=== PATIENT | female | born 1955 | race Caucasian/White ===

== ENCOUNTER → 2017-07-13 | Outpatient (CLI) | payer OTHER ==
[~2017-07-13] MED LIST: CIPR-326 PO; DETROL LA; KET10 PO; LOR5 PO; PRE20 PO; TOLT4CAP13 PO
--- NOTE | 2017-07-13 10:49 | RADIOLOGY IMAGING REPORT ---
FACILITY: [facility] [place] PATIENT NAME: Cierra Campos : 1955 MR: [id number] V: [id number] EXAM DATE: ORDERING PHYSICIAN: MIGUEL ANGEL GAN TECHNOLOGIST: Location: [facility] Patient: Cierra Campos : 1955 Visit/Account:[id number] Date of Sevice: 07/13/2017 PELVIC HISTORY: Enlarged uterus TECHNIQUE: Transabdominal and transvaginal ultrasound pelvis. COMPARISON: CT July 25, 2016 FINDINGS: Uterus: There is a retroverted uterus; 6.4 cm length x 3.3 cm AP x 4 cm transverse. Myometrium: Unremarkable. Endometrium: Bicornuate; double thickness 3.7 mm. Cervix: Nabothian cysts are present. On one image there suggestion of shadowing calcifications/secre tions Ovaries: Right - not visualized Left - visualized Adnexa: Grossly unremarkable. Free pelvic fluid: None. IMPRESSION: Bicornuate, retroflexed uterus Nabothian cysts On one image there suggestion of shadowing calcifications/secretions within the cervix Neither ovary visualized Report Dictated By: Audrey Dior MD at 07/13/2017 10:41 AM Report E-Signed By: Audrey Dior MD at 07/13/2017 10:45 AM WSN:[id number]
== END ==
LOC: US 03:09
PROVIDERS: ATTEND Family Medicine
DX: N85.4 Malposition of uterus (principal); N88.8 Other specified noninflammatory disorders of cervix uteri
CPT/HCPCS: 76856

== ENCOUNTER → 2017-07-24 | Outpatient (CLI) | payer OTHER ==
--- NOTE | 2017-07-24 14:07 | RADIOLOGY IMAGING REPORT ---
FACILITY: [facility] PATIENT NAME: CHELSIE JAMES : [id number] MR: [id number] V: [id number] EXAM DATE: [id number] ORDERING PHYSICIAN: MIGUEL ANGEL GAN TECHNOLOGIST: Marina Castillo PROCEDURE:BILATERAL DIGITAL SCREENING MAMMOGRAM WITH CAD ASSISTED INTERPRETATION & 3D TOMOSYNTHESIS TECHNIQUE: Routine CC & MLO 3D tomographic images were obtained of both breasts. CAD was used. COMPARISON:Dating back to 2008 are available. INDICATIONS:SCREENING BREAST DENSITY: Scattered fibroglandular densities. FINDINGS: Subtle low density nodularity in the 12 o'clock position Right breast anterior depth appears stable allowing for differences in technique. No new enlarging masses or suspicious microcalcifications in either breast. DIAGNOSTIC CATEGORY 1--NEGATIVE. RECOMMENDATIONS: ROUTINE MAMMOGRAM AND CLINICAL EVALUATION IN 1 YR. IMPRESSION: BIRADS 1: Negative. Dictated by: Jesús Zuleta M.D. on 07/24/2017 at 12:26 Transcribed by: ISRAEL on 07/24/2017 at 13:50 Approved by: Jesús Zuleta M.D. on 07/24/2017 at 14:06 [facility]
== END ==
LOC: MAMO 01:01
PROVIDERS: ATTEND Family Medicine
DX: Z12.31 Encounter for screening mammogram for malignant neoplasm of breast (principal); R92.8 Other abnormal and inconclusive findings on diagnostic imaging of breast
CPT/HCPCS: 77063; 77067

== ENCOUNTER → 2018-09-10 | Outpatient (CLI) | payer OTHER ==
--- NOTE | 2018-09-11 08:22 | RADIOLOGY IMAGING REPORT ---
FACILITY: [facility] [place] PATIENT NAME: CHELSIE JAMES : [id number] MR: [id number] V: [id number] EXAM DATE: ORDERING PHYSICIAN: MIGUEL ANGEL GAN TECHNOLOGIST: Anita Bass PROCEDURE:BILATERAL DIGITAL SCREENING MAMMOGRAM WITH CAD ASSISTED INTERPRETATION & 3D TOMOSYNTHESIS COMPARISON:Prior mammograms 07/24/17. INDICATIONS:SCREENING FINDINGS: There are scattered areas of fibroglandular density throughout the breasts. The parenchymal pattern has remained stable allowing for difference in mammographic technique & patient positioning. DIAGNOSTIC CATEGORY 1--NEGATIVE. RECOMMENDATIONS: ROUTINE MAMMOGRAM AND CLINICAL EVALUATION. IMPRESSION: BIRADS 1: Negative. No significant abnormality is seen. Dictated by: Audrey Dior M.D. on 09/10/2018 at 14:55 Transcribed by: THOMAS on 09/10/2018 at 14:59 Approved by: Audrey Dior M.D. on 09/11/2018 at 8:21 [facility]
== END ==
LOC: MAMO 01:32
PROVIDERS: ATTEND Family Medicine
DX: Z12.31 Encounter for screening mammogram for malignant neoplasm of breast (principal)
CPT/HCPCS: 77063; 77067

== ENCOUNTER 2018-10-27 23:47 | Observation (INO) | payer OTHER, MEDICARE ==
[~2018-10-27] VITALS: Ht 165.1 cm; Wt 96.2 kg
[2018-10-27] MEDS ORDERED: HYDR-2966 PO (23:58)
[2018-10-27] MEDS ORDERED: LOSA25TA57 PO (23:58)
[2018-10-27] MEDS ORDERED: AMLO-125 PO (23:58)
--- NOTE | 2018-10-27 23:58 | ER Report ---
History and Physical Time Seen By : 23:58 Hx. of Stated Complaint: POSSIBLE KIDNEY STONES R SIDE. HPI/ROS CHIEF COMPLAINT: Possible kidney stone HISTORY OF PRESENT ILLNESS: This is a 62-year-old female. She started having pain last night, worsening. This is in the right flank. She describes it as being in "back labor." Having nausea. Pain is severe. No fevers or chills. Feels like she needs to urinate but cannot. Feels like she needs to have a bowel movement but cannot. Prior to the onset of pain no problem with bowel or bladder function. No other abdominal pain. Not short of breath or having chest pain. Allergies: Coded Allergies: ciprofloxacin (Verified Allergy, Intermediate, RASH, 10/27/18) sulfamethoxazole (Verified Allergy, Mild, NAUSEA AND VOMITING, 10/27/18) trimethoprim (Verified Allergy, Mild, NAUSEA AND VOMITING, 10/27/18) Home Meds Reported Medications Hydrochlorothiazide (HYDROCHLOROTHIAZIDE) 25 Mg Tablet, 1 TAB PO QDAY, TAB 10/27/18 Amlodipine Besylate (AMLODIPINE BESYLATE) 5 Mg Tablet, 1 TAB PO QDAY, TAB 10/27/18 Losartan Potassium (LOSARTAN POTASSIUM) 25 Mg Tablet, 25 MG PO QDAY 10/27/18 Discontinued Scripts Ketorolac Tromethamine (KETOROLAC TROMETHAMINE) 10 Mg Tab, 10 MG PO Q6H PRN for PAIN, #12 TAB 0 Refills Prov:JORGE ALBERTO HARLEY MD 10/28/18 Oxycodone Hcl/Acetaminophen (PERCOCET 5-325 MG TABLET) 1 Each Tablet, 1 EACH PO Q4H PRN for PAIN, #12 TAB 0 Refills Prov:JORGE ALBERTO HARLEY MD 10/28/18 Ondansetron 4 Mg Odt (ONDANSETRON 4 MG ODT) 4 Mg Tab.rapdis, 4 MG PO Q6H PRN for NAUSEA/VOMITING, #20 TAB 0 Refills Prov:JORGE ALBERTO HARLEY MD 10/28/18 Tamsulosin Hcl (FLOMAX) 0.4 Mg Cap.er.24h, 0.4 MG PO QDAY, #14 CAP 0 Refills Prov:JORGE ALBERTO HARLEY MD 10/28/18 Ketorolac Tromethamine (KETOROLAC TROMETHAMINE) 10 Mg Tab, 10 MG PO Q6H PRN for PAIN, #12 TAB Prov:LAURA MONTANA MD 07/25/16 Reviewed Nurses Notes: Yes Hx Substance Use Disorder: No Hx Alcohol Use: No Constitutional Vital Sign - Last 24 Hours 10/27/18 10/27/18 10/28/18 10/28/18 23:50 23:54 00:02 00:17 Temp 97.4 Pulse 92 86 85 Resp 14 B/P (MAP) 147/74 147/74 (98) Pulse Ox 95 98 96 O2 Delivery Room Air 10/28/18 10/28/18 10/28/18 10/28/18 00:47 01:00 01:02 01:17 Pulse 89 85 87 B/P (MAP) 135/58 (83) Pulse Ox 82 94 100 10/28/18 10/28/18 10/28/18 10/28/18 01:30 01:32 01:37 01:52 Pulse 92 87 B/P (MAP) 131/60 (83) Pulse Ox 83 83 96 10/28/18 10/28/18 10/28/18 10/28/18 02:00 02:07 02:22 02:47 Pulse 90 92 95 B/P (MAP) 146/74 (98) Pulse Ox 97 95 10/28/18 10/28/18 10/28/18 02:52 03:22 03:37 Pulse 91 91 86 Pulse Ox 94 95 95 Intake and Output 10/27/18 10/27/18 10/28/18 15:00 23:00 07:00 Intake Total 1000 ml Balance 1000 ml Physical Exam General Appearance: The patient is alert. Acute distress because of her pain. Eyes: Pupils are equal, round. No pallor, injection or icterus. ENT: Mucous membranes are moist. Normal oral mucosa. Respiratory: Lungs are clear to auscultation. Cardiovascular: Regular rate and rhythm. No murmurs, gallops or rubs. Normal capillary refill. Gastrointestinal: Abdomen is soft, no reproducible tenderness with palpation. Nondistended. Normal active bowel sounds. No costovertebral angle tenderness with percussion. Neurological: Alert and oriented x3. No focal neurologic deficits Skin: Warm and dry. Musculoskeletal: No pain in the midline of her back. Minimal pain with palpation lower right back. DIFFERENTIAL DIAGNOSIS: After history and physical exam, differential diagnosis was considered for patient with flank pain that is likely kidney stone but will need to look for other possible causes as well. Medical Decision Making Data Points Result Diagram: 10/28/18 0004 10/28/18 0004 Laboratory Hematology Test 10/28/18 00:04 10/28/18 01:37 Red Blood Count 5.22 M/uL (4.17-5.56) Mean Corpuscular Volume 92.6 fL (80.0-96.0) Mean Corpuscular Hemoglobin 31.3 pg (26.0-33.0) Mean Corpuscular Hemoglobin Concent 33.8 g/dL (32.0-36.0) Red Cell Distribution Width 13.1 % (11.5-14.5) Mean Platelet Volume 9.2 fL (7.2-11.1) Neutrophils (%) (Auto) 58.0 % (39.4-72.5) Lymphocytes (%) (Auto) 31.1 % (17.6-49.6) Monocytes (%) (Auto) 8.5 % (4.1-12.4) Eosinophils (%) (Auto) 1.6 % (0.4-6.7) Basophils (%) (Auto) 0.8 % (0.3-1.4) Nucleated RBC Relative Count (auto) 0.1 /100WBC Neutrophils # (Auto) 4.5 K/uL (2.0-7.4) Lymphocytes # (Auto) 2.4 K/uL (1.3-3.6) Monocytes # (Auto) 0.7 K/uL (0.3-1.0) Eosinophils # (Auto) 0.1 K/uL (0.0-0.5) Basophils # (Auto) 0.1 K/uL (0.0-0.1) Nucleated RBC Absolute Count (auto) 0.01 K/uL Sodium Level 138 mmol/L (137-145) Potassium Level 3.5 mmol/L (3.5-5.0) Chloride Level 103 mmol/L (98-107) Carbon Dioxide Level 28 mmol/L (22-31) Blood Urea Nitrogen 21 mg/dl (7-18) Creatinine 0.80 mg/dl (0.52-1.04) Glomerular Filtration Rate Calc > 60.0 Random Glucose 145 mg/dl (75-110) Calcium Level 9.9 mg/dl (8.4-10.2) Total Bilirubin 0.3 mg/dl (0.2-1.3) Aspartate Amino Transf (AST/SGOT) 29 U/L (0-35) Alanine Aminotransferase (ALT/SGPT) 37 U/L (0-56) Alkaline Phosphatase 90 U/L (0-126) Total Protein 7.6 g/dl (6.3-8.2) Albumin 4.5 g/dl (3.5-5.0) Urine Color Yellow Urine Clarity Clear Urine pH 5.0 pH (4.8-9.5) Urine Specific [place] 1.019 Urine Protein 30 mg/dL (NEGATIVE) Urine Glucose (UA) Negative mg/dL (NEGATIVE) Urine Ketones Negative mg/dL (NEGATIVE) Urine Blood Large (NEGATIVE) Urine Nitrite Negative (NEGATIVE) Urine Bilirubin Negative (NEGATIVE) Urine Urobilinogen Negative mg/dL (0.2-1.9) Urine Leukocyte Esterase Moderate (NEGATIVE) Urine RBC 136 /HPF (0-2/HPF) Urine WBC 58 /HPF (0-5/HPF) Urine Squamous Epithelial Cells Many /LPF (</=FEW) Urine Transitional Epithelial Cells Many /LPF (NONE-FEW) Urine Bacteria Few /HPF (NONE-FEW) Urine Mucus Few /HPF (NONE-FEW) Chemistry Test 10/28/18 00:04 10/28/18 01:37 White Blood Count 7.8 k/uL (4.5-11.0) Red Blood Count 5.22 M/uL (4.17-5.56) Hemoglobin 16.3 g/dL (12.0-16.0) Hematocrit 48.3 % (34.0-47.0) Mean Corpuscular Volume 92.6 fL (80.0-96.0) Mean Corpuscular Hemoglobin 31.3 pg (26.0-33.0) Mean Corpuscular Hemoglobin Concent 33.8 g/dL (32.0-36.0) Red Cell Distribution Width 13.1 % (11.5-14.5) Platelet Count 215 K/uL (150-450) Mean Platelet Volume 9.2 fL (7.2-11.1) Neutrophils (%) (Auto) 58.0 % (39.4-72.5) Lymphocytes (%) (Auto) 31.1 % (17.6-49.6) Monocytes (%) (Auto) 8.5 % (4.1-12.4) Eosinophils (%) (Auto) 1.6 % (0.4-6.7) Basophils (%) (Auto) 0.8 % (0.3-1.4) Nucleated RBC Relative Count (auto) 0.1 /100WBC Neutrophils # (Auto) 4.5 K/uL (2.0-7.4) Lymphocytes # (Auto) 2.4 K/uL (1.3-3.6) Monocytes # (Auto) 0.7 K/uL (0.3-1.0) Eosinophils # (Auto) 0.1 K/uL (0.0-0.5) Basophils # (Auto) 0.1 K/uL (0.0-0.1) Nucleated RBC Absolute Count (auto) 0.01 K/uL Glomerular Filtration Rate Calc > 60.0 Calcium Level 9.9 mg/dl (8.4-10.2) Total Bilirubin 0.3 mg/dl (0.2-1.3) Aspartate Amino Transf (AST/SGOT) 29 U/L (0-35) Alanine Aminotransferase (ALT/SGPT) 37 U/L (0-56) Alkaline Phosphatase 90 U/L (0-126) Total Protein 7.6 g/dl (6.3-8.2) Albumin 4.5 g/dl (3.5-5.0) Urine Color Yellow Urine Clarity Clear Urine pH 5.0 pH (4.8-9.5) Urine Specific [place] 1.019 Urine Protein 30 mg/dL (NEGATIVE) Urine Glucose (UA) Negative mg/dL (NEGATIVE) Urine Ketones Negative mg/dL (NEGATIVE) Urine Blood Large (NEGATIVE) Urine Nitrite Negative (NEGATIVE) Urine Bilirubin Negative (NEGATIVE) Urine Urobilinogen Negative mg/dL (0.2-1.9) Urine Leukocyte Esterase Moderate (NEGATIVE) Urine RBC 136 /HPF (0-2/HPF) Urine WBC 58 /HPF (0-5/HPF) Urine Squamous Epithelial Cells Many /LPF (</=FEW) Urine Transitional Epithelial Cells Many /LPF (NONE-FEW) Urine Bacteria Few /HPF (NONE-FEW) Urine Mucus Few /HPF (NONE-FEW) Urinalysis Test 10/28/18 01:37 Urine Color Yellow Urine Clarity Clear Urine pH 5.0 pH (4.8-9.5) Urine Specific [place] 1.019 Urine Protein 30 mg/dL (NEGATIVE) Urine Glucose (UA) Negative mg/dL (NEGATIVE) Urine Ketones Negative mg/dL (NEGATIVE) Urine Blood Large (NEGATIVE) Urine Nitrite Negative (NEGATIVE) Urine Bilirubin Negative (NEGATIVE) Urine Urobilinogen Negative mg/dL (0.2-1.9) Urine Leukocyte Esterase Moderate (NEGATIVE) Urine RBC 136 /HPF (0-2/HPF) Urine WBC 58 /HPF (0-5/HPF) Urine Squamous Epithelial Cells Many /LPF (</=FEW) Urine Transitional Epithelial Cells Many /LPF (NONE-FEW) Urine Bacteria Few /HPF (NONE-FEW) Urine Mucus Few /HPF (NONE-FEW) EKG/Imaging Imaging CT ABDOMEN PELVIS W/O CON HISTORY: Right flank pain. COMPARISON: 07/25/2016. TECHNIQUE: Axial images were obtained from the lung bases through the symphysis pubis without intravenous contrast. Sagittal and coronal reformats were performed. One of the following dose optimization techniques was utilized in the performance of this exam: Automated exposure control; adjustment of the mA and/or kV according to the patient's size; or use of an iterative reconstruction technique. Specific details can be referenced in the facility's radiology CT exam operational policy. CONTRAST: None. FINDINGS: Lower chest: There is a calcified granuloma in the right lower lobe. Liver: Normal. Gallbladder/biliary: Normal. Pancreas: Normal. Spleen: Normal. Adrenals: Normal. Kidneys/ureters/bladder: There is a 4 mm obstructing calculus at the right ureterovesical junction that causes mild to moderate right hydronephrosis and hydroureter. There is mild perinephric stranding. There are 4 right and 3 left nonobstructing renal calculi. The largest is on the left and measures 7 mm (coronal image 60). There are bilateral parapelvic cysts. The left ureter and the bladder are normal. GI/mesentery/peritoneal cavity: There is no bowel obstruction. There is no wall thickening or pericolonic stranding. The appendix is normal. No diverticula. No free air or free fluid. Vessels: No atherosclerotic disease. No aneurysm. Circumaortic left renal vein. Nodes: Normal. Pelvis: Uterus and ovaries are normal. There is a left pelvic phlebolith. Bones/vertebra/soft tissues: There is a small fat-containing umbilical hernia. There is severe degenerative facet disease of the lower lumbar spine. The vertebral body heights are maintained. There is new 2 mm anterolisthesis of L4 compared to L5. Spinal canal is normal in caliber. There is mild degenerative c hange of the hips. IMPRESSION: 1. 4 mm obstructing right ureteropelvic junction calculus causes mild to moderate right hydronephrosis and hydroureter. 2. Bilateral nonobstructing nephrolithiasis. 3. New 2 mm anterolisthesis of L4 compared to L5. Report Dictated By: Laura Hobbs at 10/28/2018 12:52 AM ED Course/Re-evaluation Clinical Indication for ER IV: Hydration, IV Access ED Course Patient given morphine and Toradol for pain, brought the pain level down a little. Also given Zofran for nausea which helped her nausea significantly. Given Dilaudid for pain which made a big difference but also made the patient will hypoxic. Went to CT scan and do show a 4 mm stone at the ureteropelvic junction with mild hydronephrosis. No sign of infection, urine more of a contaminated specimen, and sent for culture. Negative CBC, mild elevation of B UN/Cr ratio. Reviewed these findings with the patient. Gave Flomax. Also an oral Percocet. Patient did have some more nausea was given some more Zofran. We were going to try to send the patient home for home treatment, however, she had continued pain, then hypoxia with pain medicine, then further nausea. Unable to get symptoms controlled to get her home. Called and spoke with Dr. Ceja who accepted the patient for admission. Decision to Disposition Date: October 28, 2018 Decision to Disposition Time: 04:07 Depart Departure Latest Vital Signs Vital Signs Date Time Temp Pulse Resp B/P (MAP) Pulse Ox O2 Delivery O2 Flow Rate FiO2 10/28/18 03:37 86 95 10/28/18 02:00 146/74 (98) 10/27/18 23:50 97.4 14 Room Air Impression: Primary Impression: Kidney stone Condition: Condition Unchanged Disposition: Admitted from ER Referrals: MIGUEL ANGEL GAN DO (PCP) JORGE ALBERTO HARLEY MD October 27, 2018 23:58
[2018-10-28] MEDS ORDERED: NS(*) 0.9% 1000 ML BAG 1,000 ML IV ONE (00:05)
[2018-10-28] MEDS ORDERED: MORPHINE 4 MG/ML SDV IVP ONE (00:05)
[2018-10-28] MEDS ORDERED: KETOROLAC 30 MG/ML VIAL IVP ONE (00:05)
[2018-10-28] MEDS ORDERED: ONDANSETRON 4 MG/2 ML VIAL IVP ONE ×2 (00:05→02:35)
[2018-10-28 00:19] LABS: PLATELET COUNT, AUTOMATED 215 K/uL (150-450)
[2018-10-28] MEDS ORDERED: HYDROMORPHONE HCL 1 MG/ML SYRINGE IVP ONE (00:30)
--- NOTE | 2018-10-28 01:06 | RADIOLOGY IMAGING REPORT ---
[facility] PATIENT NAME: Cierra Campos : 1955 MR: [id number] V: [id number] EXAM DATE: ORDERING PHYSICIAN: JORGE ALBERTO HARLEY TECHNOLOGIST: Location: [facility] Patient: Cierra Campos : 1955 Visit/Account:[id number] Date of Sevice: 10/28/2018 CT ABDOMEN PELVIS W/O CON HISTORY: Right flank pain. COMPARISON: 07/25/2016. TECHNIQUE: Axial images were obtained from the lung bases through the symphysis pubis without intrave nous contrast. Sagittal and coronal reformats were performed. One of the following dose optimization techniques was utilized in the performance of this exam: Autom ated exposure control; adjustment of the mA and/or kV according to the patient's size; or use of an i terative reconstruction technique. Specific details can be referenced in the facility's radiology CT exam operational policy. CONTRAST: None. FINDINGS: Lower chest: There is a calcified granuloma in the right lower lobe. Liver: Normal. Gallbladder/biliary: Normal. Pancreas: Normal. Spleen: Normal. Adrenals: Normal. Kidneys/ureters/bladder: There is a 4 mm obstructing calculus at the right ureterovesical junction th at causes mild to moderate right hydronephrosis and hydroureter. There is mild perinephric stranding. There are 4 right and 3 left nonobstructing renal calculi. The largest is on the left and measures 7 mm (coronal image 60). There are bilateral parapelvic cysts. The left ureter and the bladder are nor mal. GI/mesentery/peritoneal cavity: There is no bowel obstruction. There is no wall thickening or pericol onic stranding. The appendix is normal. No diverticula. No free air or free fluid. Vessels: No atherosclerotic disease. No aneurysm. Circumaortic left renal vein. Nodes: Normal. Pelvis: Uterus and ovaries are normal. There is a left pelvic phlebolith. Bones/vertebra/soft tissues: There is a small fat-containing umbilical hernia. There is severe degene rative facet disease of the lower lumbar spine. The vertebral body heights are maintained. There is n ew 2 mm anterolisthesis of L4 compared to L5. Spinal canal is normal in caliber. There is mild degene rative change of the hips. IMPRESSION: 1. 4 mm obstructing right ureteropelvic junction calculus causes mild to moderate right hydronephrosi s and hydroureter. 2. Bilateral nonobstructing nephrolithiasis. 3. New 2 mm anterolisthesis of L4 compared to L5. Report Dictated By: Laura Hobbs at 10/28/2018 12:52 AM Report E-Signed By: Laura Hobbs at 10/28/2018 1:02 AM WSN:[id number]
[2018-10-28] MEDS ORDERED: oxyCODON/ACET (*)5/325MG (CII) 1 TAB TAB PO ONE (01:20)
[2018-10-28] MEDS ORDERED: TAMSULOSIN HCL 0.4 MG CAP PO ONE (01:20)
[2018-10-28] MEDS ORDERED: OXYC-865 PO (02:06)
[2018-10-28] MEDS ORDERED: KET10 PO (02:06)
[2018-10-28] MEDS ORDERED: TAMS0.4C25 PO (02:06)
[2018-10-28] MEDS ORDERED: ONDA4TAB9 PO (02:06)
[2018-10-28] MEDS: oxyCODONE/ACETAMIN 5/325MG TH 2 TAB/BOTTLE PO ONE ×2 (02:10→02:30)
[2018-10-28] MEDS: KETOROLAC TROM 10 MG TAB TH PO ONE ×2 (02:10→02:30)
[2018-10-28] MEDS: ONDANSETRON 4 MG ODT TH SL ONE ×2 (02:10→02:30)
[2018-10-28 04:41] VITALS: BP 130/59
[2018-10-28] MEDS ORDERED: NS 0.9% IV PRN (04:45)
[2018-10-28] MEDS ORDERED: ONDANSETRON 4 MG/2 ML VIAL IVP PRN (04:50)
[2018-10-28 06:37] VITALS: BP 111/50
[2018-10-28] MEDS: HYDROmorphone* 1 MG/ML 1 MG/ML ML IVP PRN ×2 (07:00→11:32)
[2018-10-28] MEDS: KETOROLAC 30 MG/ML VIAL IVP PRN ×2 (07:00→13:38)
[2018-10-28] MEDS ORDERED: FAMO20TA28 PO (13:08)
[2018-10-28] MEDS ORDERED: HYDR-653 PO (13:09)
[2018-10-28] MEDS ORDERED: IBUP600T22 PO (13:12)
[2018-10-28] MEDS ORDERED: CEPH500T7 PO (13:14)
[2018-10-29] MEDS ORDERED: MULT1CAP59 PO (15:23)
== END 2018-10-28 13:17 | disposition home or self-care (01) ==
LOC: ER 23:59 → INTOOBSV 10-28 04:15 → MED 10-28 04:15
DX: N20.0 Calculus of kidney (principal)
CPT/HCPCS: 74176; 81001; 85025; 87088; 96361; 96374; 96375; 96376; 99284; G0378; J1170; J1885; J2270; J2405; J7030; 82040; 82247; 82310; 82374; 82435; 82565; 82947; 84075; 84132; 84155; 84295; 84450; 84460; 84520; S0119

== ENCOUNTER 2018-10-31 01:40 | Observation (INO) | payer OTHER ==
[2018-10-31] VITALS (16 sets, daily range): BP systolic 119–166; BP diastolic 60–99
[~2018-10-31] VITALS: Ht 165.1 cm; Wt 95.7 kg
[~2018-10-31 01:40] MED LIST changes: +AMLO-125 PO; +CEPH500T7 PO; +FAMO20TA28 PO; +HYDR-2966 PO; +HYDR-653 PO; +IBUP600T22 PO; +LOSA25TA57 PO; +MULT1CAP59 PO; +ONDA4TAB9 PO; +OXYC-865 PO; +TAMS0.4C25 PO
[2018-10-31] MEDS: FAMOTIDINE 20 MG TAB PO ONE ×2 (06:17→06:20)
[2018-10-31] MEDS ORDERED: MIDAZOLAM 2 MG/2 ML VIAL IVP PRN (06:45)
[2018-10-31] MEDS ORDERED: NORMOSOL R SOLN(*) 1000 ML BAG 1,000 ML IV PRN (06:45)
[2018-10-31] MEDS ORDERED: LIDOCAINE/SOD BICARB 8.4% SYR ID ONE (06:45)
[2018-10-31] MEDS ORDERED: cefTRIAXone(*) 2 GM VIAL 2 GM in NS(*) 0.9% 100 ML MINI-BAG 100 ML IVPB ONE (06:45)
[2018-10-31] MEDS ORDERED: IOPAMIDOL-200 50 ML VIAL IS ONE (07:13)
[2018-10-31 07:25] LABS: INR 0.96
[2018-10-31] MEDS ORDERED: DEXAMETHASONE SOD PHOS 10MG/ML ONE (07:26)
[2018-10-31] MEDS ORDERED: PROPOFOL EMUL(*) 10MG/ML 20 ML 20 ML ONE (07:26)
[2018-10-31] MEDS ORDERED: ONDANSETRON 4 MG/2 ML VIAL ONE (07:26)
--- NOTE | 2018-10-31 07:36 | RADIOLOGY IMAGING REPORT ---
[place] [facility] [place] NAME[place] Cierra Campos : 1955 MR: [id number] V: [id number] EXAM DATE: ORDERING PHYSICIAN: KOBY DORANTES TECHNOLOGIST: Location: [facility] [place] Patient: Cierra Campos : 1955 Visit/Account:[id number] Date of Sevice: 10/29/2018 KUB SINGLE VIEW ABDOMEN HISTORY: KIDNEY STONES COMPARISON: CT examination October 28, 2018 FINDINGS: An ovoid 8 mm stone projects over lower pole calyx on the left. Punctate densities are seen in the re gion the mid and lower pole right kidney. The stones seen at the right UVJ is difficult and not defin itively seen. IMPRESSION: 1. Bilateral nephrolithiasis. 2. The 4 mm stone seen at the right UVJ is not definitively seen. Report Dictated By: Zach Blanco MD at 10/31/2018 7:30 AM Report E-Signed By: Zach Blanco MD at 10/31/2018 7:32 AM WSN:[id number]
[2018-10-31] MEDS ORDERED: fentaNYL CITR 100 MCG/2 ML AMP ONE (07:54)
--- NOTE | 2018-10-31 08:42 | EKG ---
FACILITY: [facility] PATIENT NAME: CHELSIE JAMES : [id number] MR: [id number] V: [id number] EXAM DATE: ORDERING PHYSICIAN: KOBY STINSON TECHNOLOGIST: ELIANA Test Reason : PRE OP Blood Pressure : / mmHG Vent. Rate : 082 BPM Atrial Rate : 082 BPM P-R Int : 148 ms QRS Dur : 086 ms QT Int : 376 ms P-R-T Axes : 057 -49 048 degrees QTc Int : 439 ms Normal sinus rhythm Left axis deviation Poor R V1-6 - may be related to lead placement. No previous ECGs available Confirmed by MALCOLM WARNER ([id number]) on 10/31/2018 9:03:21 PM Referred By: JOSE E Confirmed By:MALCOLM WARNER
--- NOTE | 2018-10-31 11:29 | OPERATIVE REPORT 1 ---
EVENT DATE: October 31, 2018 SURGEON: Thanh Ceja MD ANESTHESIOLOGIST: Thanh London MD ANESTHESIA: General. PREOPERATIVE DIAGNOSES 1. Right ureteral lithiasis with associated ureteral renal colic. 2. Bilateral renal lithiasis. POSTOPERATIVE DIAGNOSES 1. Right ureteral lithiasis with associated ureteral renal colic. 2. Bilateral renal lithiasis. 3. No evidence of right ureteral lithiasis. PROCEDURES PERFORMED 1. Cystourethroscopy. 2. Right ureteral pyelograms. 3. Right ureterorenoscopy. 4. Bilateral external ureteral stent placement and subsequent removal. 5. Right ESWL, two stones. 6. Left ESWL, one stone. 7. indwelling left stent placement DESCRIPTION OF PROCEDURE Under general anesthetic, the patient was prepped and draped in the extended lithotomy position. The 21-Panendoscope was admitted through the urethra and into the bladder. Urine was obtained for culture and sensitivity. No stones were visible in the bladder. There appeared to be possible early acute cystitis. The bladder was bathed with Betadine solution and the patient was on Rocephin and gentamicin antibiotic therapy. The Betadine solution was left in contact with the bladder for approximately five minutes. The Betadine solution was irrigated free from the bladder. The 21-Panendoscope was admitted through the urethra into the bladder. Right ureteral pyelograms were obtained. No stone was clearly visible on the ureteral pyelogram. The kidney appeared to drain freely and the ureter was fnormal in size. The ureteral renoscope passed up the right ureter without any difficulty. No stones were visualized in its entirety. The external stents were placed. The external stents were secured to a Ford. Contrast medium was attached to the ureteral stents. The patient was transferred to the stone treatment unit. After positioning the large stones in the inferior pole of the left kidney were treated with a total of 3,000 shocks, progressing from low to high kV fairly slowly. The stone appeared to satisfactorily disintegrateand did spread out over a fairly large area in the inferior pole area. All the shocks were administered to that area to hopefully ensure complete disintegration. The two small stones in the midpole area of the left kidney were not treated. The patient was positioned for right extracorporeal shock wave lithotripsy and the two stones in the right kidney, the inferior pole area and the mid pole area of the right kidney were treated with a total of 1,500 shocks, progressing from low to high kV fairly rapidly. The external stents were removed. A 21-Panendoscope was admitted through the urethra into the bladder. The access catheter was placed in the left ureter and a 0.038 flexible tip guidewire. The 6-Cymro x 26 cm Percuflex Plus was passed up the left collecting system without any difficulty. X-rays showed a full curl in the left kidney and a full curl in the bladder. The bladder was drained. Patient tolerated the procedure satisfactorily and returned to the recovery room in satisfactory condition. This is a 62-year old white female complaining of right ureterolithiasis with associated severe ureteral renal colic, nausea and vomiting. She was admitted and treated symptomatically. Options were discussed with the patient as to her problems and treatment options. She elected to follow up and that has been accomplished. See operative note for details. Patient will be ready for discharge home if all is going well. To force fluids 12 glasses of water per day. Activities are as tolerated. She is to strain all of her urine. She is to continue her usual medications. Copy of instructions were given to the patient. We will plan followup this coming Sunday in the office. KIKI
[2018-10-31] MEDS ORDERED: ONDANSETRON 4 MG/2 ML VIAL IVP PRN (12:00)
[2018-10-31] MEDS ORDERED: LR(*) 1000 ML BAG 1,000 ML IV PRN (12:00)
[2018-10-31] MEDS ORDERED: ACETAMIN/CODEINE #3 300-30 MG PO PRN (12:00)
[2018-10-31] MEDS ORDERED: ZOLPIDEM TARTRATE 5 MG TAB PO PRN (12:00)
[2018-10-31] MEDS ORDERED: FLUSH 10 ML SYR IVP PRN (12:00)
[2018-10-31] MEDS ORDERED: PCA LOCKBOX KEYS XX PRN (12:05)
[2018-10-31] MEDS ORDERED: NALOXONE HCL 0.4 MG/ML VIAL IVP PRN (12:05)
[2018-10-31] MEDS ORDERED: HYDROMORPHON PCA10MG/50ML(CII) 10 MG/50 ML PLAST..BAG IV PRN (12:05)
--- NOTE | 2018-10-31 13:08 | RADIOLOGY IMAGING REPORT ---
FACILITY: [facility] - [place] PATIENT NAME: Cierra Campos : 1955 MR: [id number] V: [id number] EXAM DATE: ORDERING PHYSICIAN: KOBY DORANTES TECHNOLOGIST: Location: [facility] [place] Patient: Cierra Campos : 1955 Visit/Account:[id number] Date of Sevice: 10/31/2018 Exam type: RETROGRADE PYELOGRAM History: HEMATURIA, pain on right side, kidney stone Comparison: October 29, 2018 Findings: Four intraoperative C-arm spot views of the abdomen and pelvis were submitted. The total fluoroscopy time was four seconds. The fluoroscopy dose was 1.9 mgGy Contrast is seen in the nondilated right renal collecting system and ureter. A cystoscope overlies t he pelvis. A definite filling defect within the right ureter or right renal collecting system is not appreciated. Ovoid calcination again noted over the lower pole the left kidney IMPRESSION: 1. As above Report Dictated By: Audrey Dior MD at 10/31/2018 1:01 PM Report E-Signed By: Audrey Dior MD at 10/31/2018 1:04 PM WSN:[email or web address]
[2018-10-31] MEDS: GENTAMICIN/NS 80 MG/100 ML PB 100 ML IVPB SCH ×2 (14:39→22:08)
[2018-10-31] MEDS ORDERED: OXYBUTYNIN CHL XL 5 MG TABCR PO PRN (16:20)
[2018-10-31] MEDS: APAP/HYDROCODONE 325/7.5 TAB PO PRN ×2 (18:03→22:09)
[2018-10-31] MEDS: FAMOTIDINE 20 MG TAB PO SCH (21:20)
[2018-10-31] MEDS: DOCUSATE SODIUM 100 MG CAP PO SCH (21:20)
[2018-11-01] MEDS: APAP/HYDROCODONE 325/7.5 TAB PO PRN ×2 (02:54→07:18)
[2018-11-01 03:00] VITALS: BP 160/76
[2018-11-01] MEDS: GENTAMICIN/NS 80 MG/100 ML PB 100 ML IVPB SCH (06:24)
[2018-11-01 07:04] VITALS: BP 125/64
[2018-11-01] MEDS ORDERED: cefTRIAXone(*) 1 GM VIAL 1 GM in NS(*) 0.9% 100 ML MINI-BAG 100 ML IVPB SCH (08:00)
[2018-11-01] MEDS ORDERED: CEPH-13 PO (08:00)
[2018-11-01] MEDS ORDERED: HYDR-653 PO (08:02)
[2018-11-01] MEDS ORDERED: FAMO20TA28 PO (08:03)
[2018-11-01] MEDS ORDERED: IBUP600T22 PO (08:03)
[2018-11-01] MEDS: FAMOTIDINE 20 MG TAB PO SCH (09:29)
[2018-11-01] MEDS: DOCUSATE SODIUM 100 MG CAP PO SCH (09:29)
== END 2018-11-01 08:22 | disposition home or self-care (01) ==
LOC: OR 01:40 → INTOOBSV 11:50 → MED 11:50 → OBSVTOIN 11:50
DX: N20.0 Calculus of kidney (principal); R11.2 Nausea with vomiting, unspecified; I10 Essential (primary) hypertension; M19.90 Unspecified osteoarthritis, unspecified site; Z79.899 Other long term (current) drug therapy
CPT/HCPCS: 50590; 52351; 74018; 74420; 85610; 87088; 93005; C1758; G0378; J0696; J1100; J1580; J2250; J2405; J2704; J3010; Q9966

== ENCOUNTER → 2018-11-05 | Outpatient (CLI) | payer OTHER ==
[~2018-11-05] MED LIST changes: +CEPH-13 PO
--- NOTE | 2018-11-05 09:39 | RADIOLOGY IMAGING REPORT ---
FACILITY: [facility] - [place] PATIENT NAME: Cierra Campos : 1955 MR: [id number] V: [id number] EXAM DATE: ORDERING PHYSICIAN: KOBY DORANTES TECHNOLOGIST: Location: [facility] Patient: Cierra Campos : 1955 Visit/Account:[id number] Date of Sevice: 11/05/2018 Examination: Abdomen single view HISTORY: Lithotripsy and stent placement. COMPARISON: CT scan 10/28/2018 is reviewed. FINDINGS: The intestinal bowel gas pattern is normal. A left-sided nephroureteral stent is in place. No calculi are seen along the course of the stent. There are felt to be stone fragments overlying the mid and l ower portion of the left kidney after prior lithotripsy. Degenerative changes involve the low lumbar spine. IMPRESSION: 1. Left nephroureteral stent. 2. Stone fragments overlying the mid and lower pole of the left kidney after lithotripsy procedure. Report Dictated By: Anthony Jimenez at 11/05/2018 9:31 AM Report E-Signed By: Anthony Jimenez at 11/05/2018 9:35 AM WSN:[email or web address]
== END ==
LOC: RAD 08:37
DX: N20.0 Calculus of kidney (principal); Z96.0 Presence of urogenital implants
CPT/HCPCS: 74018

== ENCOUNTER → 2018-11-12 | Outpatient (CLI) | payer OTHER ==
--- NOTE | 2018-11-12 09:06 | RADIOLOGY IMAGING REPORT ---
[place] [facility] [place] NAME: Cierra Campos : 1955 MR: [id number] V: [id number] EXAM DATE: ORDERING PHYSICIAN: KOBY DORANTES TECHNOLOGIST: Location: [facility] - [place] Patient: Cierra Campos : 1955 Visit/Account:[id number] Date of Sevice: 11/12/2018 Exam type: KUB SINGLE VIEW ABDOMEN History: Nephroureteral ureterolithiasis Comparison: November 05, 2018. Findings: Bowel gas pattern is nonspecific. Left-sided nephroureteral stent appears unchanged in position. No calculi are identified along the course of the stent. There is a small collection of calcifications projecting over the mid and lower pole of the left kidney no definite calculi project over the right kidney IMPRESSION: 1. A collection of small calculi project over the mid and lower pole the left kidney. Report Dictated By: Audrey Dior MD at 11/12/2018 9:01 AM Report E-Signed By: Audrey Dior MD at 11/12/2018 9:03 AM WSN:[email or web address]
== END ==
LOC: RAD 08:14
DX: N20.0 Calculus of kidney (principal)
CPT/HCPCS: 74018

== ENCOUNTER → 2018-11-20 | Outpatient (CLI) | payer OTHER ==
--- NOTE | 2018-11-20 08:51 | RADIOLOGY IMAGING REPORT ---
FACILITY: [facility] PATIENT NAME: Cierra Campos : 1955 MR: [id number] V: [id number] EXAM DATE: ORDERING PHYSICIAN: KOBY DORANTES TECHNOLOGIST: Location: [facility] Patient: Cierra Campos : 1955 Visit/Account:[id number] Date of Sevice: 11/20/2018 Exam type: KUB SINGLE VIEW ABDOMEN History: Nephrolithiasis Comparison: November 12, 2018. Findings: Left ureteral stent remains in place. A collection of calculi are again seen projecting over the low er pole of the left kidney and appear less prominent. Previously noted mid pole calculi are not as w ell visualized. There is a potential tiny calculus projecting immediately adjacent to the distal por tion of the left ureteral stent. No definite calculi project over the right renal shadow. The bowel gas pattern is nonspecific IMPRESSION: 1. There appears to be a decrease in the number of calculi projecting over the inferior pole the lef t kidney There is a potential tiny calculus projecting adjacent to the distal portion of the left ureteral elder nt Report Dictated By: Audrey Dior MD at 11/20/2018 8:44 AM Report E-Signed By: Audrey Dior MD at 11/20/2018 8:47 AM WSN:[email or web address]
== END ==
LOC: RAD 08:08
DX: N20.0 Calculus of kidney (principal)
CPT/HCPCS: 74018

== ENCOUNTER → 2019-01-29 | Outpatient (CLI) | payer OTHER ==
--- NOTE | 2019-01-29 11:16 | RADIOLOGY IMAGING REPORT ---
FACILITY: [facility] PATIENT NAME: Cierra Campos : 1955 MR: [id number] V: [id number] EXAM DATE: ORDERING PHYSICIAN: MIGUEL ANGEL GAN TECHNOLOGIST: Location: [facility] Patient: Cierra Campos : 1955 Visit/Account:[id number] Date of Sevice: 01/29/2019 CHEST PA LAT History: Abnormal lung sounds FINDINGS: Comparison studies: Chest x-ray July 25, 2016 Tubes and Lines: None. Lungs and pleura: Well aerated. No evidence of focal consolidation or pleural effusions. Mediastinum: normal. Cardiac silhouette: normal . Osseous structures: Unremarkable for age . IMPRESSION: Normal chest Report Dictated By: Ryan Espino MD at 01/29/2019 11:06 AM Report E-Signed By: Ryan Espino MD at 01/29/2019 11:07 AM WSN:[id number]
== END ==
LOC: RAD 09:54
PROVIDERS: ATTEND Family Medicine
DX: R09.89 Other specified symptoms and signs involving the circulatory and respiratory systems (principal)
CPT/HCPCS: 71046